=== PATIENT | male | born 1960 | race Caucasian/White ===

== ENCOUNTER 2016-11-19 16:22 | Inpatient (IN) | payer MEDICARE ==
[2016-11-19 16:26] VITALS: BP 136/81; PULSE 84; TEMP 99.2; BMI 24.3
[2016-11-19 16:51] LABS: PH,URINE 6.5 (4.5-8); URINE APPEARANCE Clear; URINE BILIRUBIN Negative (NEGATIVE); URINE BLOOD Trace-lysed (NEGATIVE); URINE GLUCOSE (UA) Negative (NEGATIVE); URINE KETONE Negative (NEGATIVE); URINE LEUK ESTERASE Negative (NEGATIVE); URINE NITRITE Negative (NEGATIVE); URINE PROTEIN Negative (NEGATIVE); URINE UROBILINOGEN 0.2 E.U/dl (0.2-1.0)
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
[2016-11-19 17:00] LABS: URINE COLOR YELLOW
[2016-11-19 18:46] LABS: EOSINOPHIL 0.4 % (0-4.5); MCH 31.7 pg (25.7-33.7); MCHC 34.5 g/dl (32.0-35.9); MEAN PLT VOLUME 7.3 fl (7.5-11.1); NEUTROPHILS 73.3 % (42.8-82.8); PLATELET COUNT 189 K/MM3 (134-434); WHITE BLOOD COUNT 9.3 K/mm3 (4.0-10.8)
[2016-11-19 19:00] LABS: ALBUMIN 4.2 g/dl (3.5-5.0); ALK PHOS 67 U/L (32-92); ANION GAP 7 (8-16); BILIRUBIN,TOTAL 0.7 mg/dl (0.2-1.0); CALCIUM 9.2 mg/dl (8.4-10.2); CO2 27 mmol/L (22-28); GLUCOSE,RANDOM 107 mg/dl (74-106); SGOT/AST 18 U/L (10-42); SGPT/ALT 19 U/L (10-40); TOT PROT 7.3 g/dl (6.4-8.3)
[2016-11-19 19:10] LABS: INR 1.08 (0.82-1.09); PROTHROMBIN TIME (PATIENT) 12.1 SEC (10.2-13.0)
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
--- NOTE | 2016-11-19 22:51 | DS ---
Physical Exam: SUBJECTIVE: Patient seen and examined OBJECTIVE: PHYSICAL EXAM GENERAL: The patient is awake, alert, and fully oriented, in no acute distress. HEAD: Normal with no signs of trauma. EYES: PERRL, extraocular movements intact, sclera anicteric, conjunctiva clear. ENT: Ears normal, nares patent, oropharynx clear without exudates, moist mucous membranes. NECK: Trachea midline, full range of motion, supple. LUNGS: Breath sounds equal, clear to auscultation bilaterally, no wheezes, no crackles, no accessory muscle use. HEART: Regular rate and rhythm, S1, S2 without murmur, rub or gallop. ABDOMEN: Soft, nontender, nondistended, normoactive bowel sounds, no guarding, no rebound, no hepatosplenomegaly, no masses. EXTREMITIES: 2+ pulses, warm, well-perfused, no edema. NEUROLOGICAL: Cranial nerves II through XII grossly intact. Normal speech, gait not observed. PSYCH: Normal mood, normal affect. SKIN: Warm, dry, normal turgor, no rashes or lesions noted. Genitourinary: penis: no erythema; no edema; foreign body not visualized; LABS HOSPITAL COURSE: Date of Admission:11/19/16 Date of Discharge: 11/19/16 Patient was sent over form [place] due to foreign body in urethra. Urology was consulted, removal was deemed non emergent. Patient was advised to follow up with urology on Tuesday in office. Patient decided to leave. Minutes to complete discharge: 35 Discharge Summary Reason For Visit: BURNING ON URINATION Current Active Problems Foreign body in urethra, initial encounter (Acute) Condition: Stable - Instructions Diet, Activity, Other Instructions: Mr. Rizo you have been advised to stay at the hospital for removal of your foreign body. Since you are electing to leave, you will be provided information to the urologist. Please make appointment on Tuesday for removal. IF you experience any worsening of symptoms, including not being able to urinate, please return to the emergency. Referrals: Luis Felipe Landaverde MD [Staff Physician] - Disposition: HOME - Home Medications Comprehensive Discharge Medication List: Ambulatory Orders NK [No Known Home Medication] 11/19/16 Problem List - Problems (1) Foreign body in urethra, initial encounter Code(s): T19.0XXA - FOREIGN BODY IN URETHRA, INITIAL ENCOUNTER Qualifiers: Encounter type: initial encounter Qualified Code(s): T19.0XXA - Foreign body in urethra, initial encounter This patient is new to me today: Yes Date on this admission: 11/19/16 Emergency Visit: Yes ED Registration Date: 11/19/16 Care time: The patient presented to the Emergency Department on the above date and was hospitalized for further evaluation of their emergent condition. Critical Care patient: No - Discharge Referral Referred to [facility] No
--- NOTE | 2016-11-20 10:47 | EKG ---
Test Reason : Blood Pressure : / mmHG Vent. Rate : 076 BPM Atrial Rate : 076 BPM P-R Int : 158 ms QRS Dur : 086 ms QT Int : 374 ms P-R-T Axes : 080 050 056 degrees QTc Int : 420 ms NORMAL SINUS RHYTHM POSSIBLE LEFT ATRIAL ENLARGEMENT NO PREVIOUS ECGS AVAILABLE Confirmed by MD MCDONALD MARJORY ([id number]) on 11/20/2016 10:47:02 AM Referred By: MD JAIME Confirmed By:CHILANGO MCDONALD MD
== END 2016-11-19 22:45 | disposition home or self-care (01) | DRG 468 ==
LOC: FER 16:22 → J5S 21:40
PROVIDERS: ADMIT Internal Medicine; ATTEND Internal Medicine
DX: T19.0XXA Foreign body in urethra, initial encounter (principal); X58.XXXA Exposure to other specified factors, initial encounter; Y99.9 Unspecified external cause status; Y93.9 Activity, unspecified; Y92.89 Other specified places as the place of occurrence of the external cause
CPT/HCPCS: 36415; 71010-TC; 80053; 81003; 85025; 85610; 86850; 86900; 86901; 87086; 93005; 99284-25